=== PATIENT | male | born 1955 ===

== ENCOUNTER 2021-07-27 08:39 | Observation (INO) ==
[2021-07-27 09:17] LABS: ABS Basophils 0.1 10^3/ul (0-0.2); ABS Eosinophils 0.1 10^3/ul (0-0.6); ABS Lymphocytes 1.5 10^3/ul (1.0-4.8); ABS Monocytes 0.7 10^3/ul (0-0.8); ABS Neutrophils 9.1 10^3/ul (1.5-7.7); Eosinophil % 0.6 %; Hematocrit 46 % (42-52); Hemoglobin 15.6 g/dL (14.0-18.0); Lymphocyte % 12.9 %; Mean Corpuscular HGB Conc 34 g/dL (31-36); Mean Corpuscular Hemoglobin 32 pg (27-31); Mean Corpuscular Volume 93 fL (80-94); Mean Platelet Volume 7.8 fL (7.4-10.4); Platelet Count 265 10^3/uL (150-450); Red Cell Distribution Width 14 % (10-15); White Blood Count 11.4 10^3/uL (3.5-10.8)
[2021-07-27 09:34] LABS: INR 1.14 (0.86-1.15)
[2021-07-27 09:36] LABS: ALT 26 U/L (7-52); AST 20 U/L (13-39); Albumin 4.8 g/dL (3.2-5.2); Albumin/Globulin Ratio 1.4 (1-3); Alkaline Phosphatase 88 U/L (35-149); Anion Gap 11 mmol/L (2-11); Blood Urea Nitrogen 25 mg/dL (6-24); CO2 Carbon Dioxide 23 mmol/L (22-32); Calcium 10.7 mg/dL (8.6-10.3); Chloride 101 mmol/L (101-111); Globulin 3.5 g/dL (2-4); Glucose 145 mg/dL (70-100); Sodium 135 mmol/L (135-145); Total Protein 8.3 g/dL (6.4-8.9)
[2021-07-27 09:37] LABS: Troponin I 0.04 ng/mL (<0.03)
[2021-07-27 12:56] LABS: Troponin I 0.04 ng/mL (<0.03)
[2021-07-27 14:20] LABS: Rapid COVID-19 Molecular Undetected (Undetected)
[2021-07-27 15:52] LABS: C Reactive Protein 9.52 mg/L (<8.01)
[2021-07-27 16:11] LABS: Troponin I 0.03 ng/mL (<0.03)
[2021-07-27] MEDS: Heparin 5000 UNITS/ML 1 mL VIAL SUBCUT SCH (21:35)
[2021-07-28] MEDS: Heparin 5000 UNITS/ML 1 mL VIAL SUBCUT SCH (05:44)
[2021-07-28 05:51] LABS: Calcium 9.9 mg/dL (8.6-10.3)
[2021-07-28 06:02] LABS: ABS Basophils 0.1 10^3/ul (0-0.2); ABS Eosinophils 0.1 10^3/ul (0-0.6); ABS Lymphocytes 1.6 10^3/ul (1.0-4.8); ABS Neutrophils 9.2 10^3/ul (1.5-7.7); Eosinophil % 0.9 %; Hematocrit 42 % (42-52); Hemoglobin 14.2 g/dL (14.0-18.0); Lymphocyte % 13.3 %; Mean Corpuscular HGB Conc 34 g/dL (31-36); Mean Corpuscular Hemoglobin 32 pg (27-31); Mean Corpuscular Volume 94 fL (80-94); Mean Platelet Volume 7.8 fL (7.4-10.4); Platelet Count 230 10^3/uL (150-450); Red Blood Count 4.46 10^6 /uL (4.18-5.48); Red Cell Distribution Width 14 % (10-15); White Blood Count 11.9 10^3/uL (3.5-10.8)
[2021-07-28] MEDS ORDERED: Perflutren Lipid Microsphere 3 ML VIAL ONE (08:03)
[2021-07-28] MEDS ORDERED: Iohexol 350 (CONTRAST) 500 ML MDV IV ONE (08:54)
[2021-07-28] MEDS ORDERED: Aspirin EC 81 mg TAB.EC (enteric coated) PO SCH (09:00)
[2021-07-28 09:14] LABS: Albumin 4.2 g/dL (3.2-5.2); Albumin/Globulin Ratio 1.3 (1-3); Direct Bilirubin 0.1 mg/dL (0.03-0.18); Globulin 3.2 g/dL (2-4); Indirect Bilirubin 0.9 mg/dL (0.3-1.0); Total Protein 7.4 g/dL (6.4-8.9)
[2021-07-28 12:23] VITALS: BP 125/65
== END 2021-07-28 16:45 | disposition home or self-care (01) ==
LOC: MED 08:39 → ED 08:39 → SUATTDRO 14:33 → MED 16:58
PROVIDERS: ADMIT Internal Medicine; ATTEND Internal Medicine